=== PATIENT | female | born 1980 | race Caucasian/White ===

== ENCOUNTER 2022-11-03 09:26 | Emergency (ER) | payer OTHER, SELFPAY ==
[2022-11-03] VITALS (7 sets, daily range): BP systolic 103–140; BP diastolic 64–92; PULSE 62–98; RESP 17–18; TEMP 36.8; O2SAT 97–100; BMI 28.8
[2022-11-03 09:44] LABS: Microscopic, Urine URINE MICROSCOPIC (MICROSCOPIC)
[2022-11-03 09:47] LABS: Appearance,Urine CLEAR (Clear); Bilirubin,Urine Negative (Negative); Blood, Urine 2+ (Negative); Color,Urine YELLOW (Yellow); Glucose,Urine (UA) Negative (Negative); Ketones,Urine Negative (Negative); Leukocyte Esterase,Urine Negative (Negative); Nitrate,Urine Negative (Negative); PH,Urine 5.5 (5.0-8.5); Protein,Urine TRACE (Negative); Specific Gravity, Urine >= 1.030 (1.005-1.030); Urobilinogen,Urine 0.2 EU/dl (0.2)
--- NOTE | 2022-11-03 09:47 | PC.NURSE ---
Iv established and blood sent to the lab
--- NOTE | 2022-11-03 09:48 | HMH.EDGENADL ---
Discharge Plan Disposition Patient Disposition: Home, Self-Care Condition: Good Prescriptions Prescriptions: New clindamycin HCl 300 mg capsule 300 mg PO QID Qty: 40 0RF hydrocodone-acetaminophen 5-325 mg tablet 1 tab PO Q6H PRN (Reason: pain) Qty: 10 0RF No Action trazodone 50 mg Tablet 50 mg PO HS PRN (Reason: Sleep) pantoprazole [Protonix] 20 mg Tablet,Delayed Release (Dr/Ec) 20 mg PO DAILY gabapentin 300 mg Capsule 300 mg PO BID Activity Restrictions/Add. Instructions Additional Instructions/Restrictions: Clindamycin as prescribed. P[place]oy as needed for pain. 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 Additional instructions for DENTAL PROBLEMS: See a dentist as soon as possible for further evaluation. Return immediately if you have an uncontrollable fever greater than 102 degrees, difficulty breathing or shortness of breath, persistent vomiting, or inability to swallow. Additional instructions for ABDOMINAL PAIN: See your physician as soon as possible for further evaluation. Return immediately if worsening abdominal pain, vomiting, shortness of breath, fever, vomiting of blood or abdominal distention. Additional instructions for CONTROLLED SUBSTANCES: You have been prescribed a medication that is a controlled substance. Controlled substances include pain medications known as opiates and sedative nerve medications known as benzodiazepines. Tramadol, fioricet, and gabapentin are also controlled substances. Some common opiates include: Codeine (such as Tylenol #3) Hydrocodone (Vicodin, Lortab, Lorcet, Pomeroy) Oxycodone (Percocet, Percodan, Oxycodone, Oxy IR) Some common benzodiazepines include: Diazepam (Valium) Lorazepam (Ativan) Alprazolam (Xanax) Clonazepam (Klonopin) Oxazepam (Serax) All of these controlled substances are highly addictive and frequently abused. Misuse can and frequently does lead to addiction as well as overdose and . Medication should be stored in a locked cabinet or other secure storage unit. Do not store the medication in a motor vehicle. Short term supplies, 3 days or less, are prescribed because of the highly addictive nature of the medication. Any of the controlled substance medication NOT taken should be disposed of properly and NOT SAVED. The recommended method of disposing of unused medications is: Place the medicines in a sealable plastic bag. If the medicine is a solid, crush it or add water to dissolve it. Add something undesirable (cat litter, coffee grounds, etc.) Dispose of sealed bag in household trash Do not flush or pour unused medicines down a sink or drain. Controlled substances should not be shared, given away or sold. Because of the addictive nature and frequent abuse, these medications are sometimes stolen. These medications should be kept in a safe place where they cannot be stolen. Do not keep them in your car or purse. Lost or stolen prescriptions for controlled substances WILL NOT BE REFILLED in this emergency department, regardless of whether a police report was filed. Clinical Impressions Clinical Impression: Abdominal pain, Infected dental caries Instructions Patient Instructions: DI for Tooth Abscess, DI for Acute Abdominal Pain Discharge ED Provider: Yeison Crandall General Adult HPI General Chief complaint: Abdominal Pain Stated complaint: jaw pain, pelvic pain Time Seen by Provider: 11/03/22 09:48 Mode of Arrival: Ambulatory Source of Information: Patient Limitations: No Limitations Description of Symptoms (Recalled from ER Triage Doc. by RN): PT REPORTS LOWER ABDOMINAL PAIN WITH HX OF ENDOMETRIOSIS. C/O LOW BACK AND HIP PAIN, PAIN TO TOP OF LEGS. RIGHT SIDED FACIAL SWELLING THAT STARTED YESTERDAY. NO DENTAL PAIN, FACE TENDER TO TOUCH History of Present Illness HPI narrative: Complains of abdominal pain and facial pain and swelling. States she has a history of endomet
--- NOTE | 2022-11-03 09:54 | PC.NURSE ---
DR. MOSER AT BEDSIDE
--- NOTE | 2022-11-03 09:56 | CT_ITS ---
FINAL REPORT CLINICAL HISTORY: R facial swelling and pain FINDINGS: After the administration of IV contrast, axial images through the facial bones and sinuses was performed by computed tomography. Sagittal and coronal reformatted images were obtained and reviewed. This study was performed with techniques to keep radiation doses as low as reasonably achievable (ALARA). Individualized dose reduction techniques using automated exposure control or adjustment of mA and/or kV according to the patient's size were employed. There is a tiny polyp or mucous retention cyst in the right maxillary sinus. There is no evidence of acute sinusitis. There is stranding and enhancement within the right pre maxillary soft tissues compatible with cellulitis. This is favored to be related to odontogenic disease with lucencies involving multiple teeth in this region. No abscess is identified. IMPRESSION: Right facial cellulitis , likely odontogenic in origin without evidence of abscess. Reviewed, Interpreted and Dictated by Skinny Cohen MD Transcribed by Della Nur Authenticated and [facility]
--- NOTE | 2022-11-03 09:58 | CT_ITS ---
FINAL REPORT TECHNIQUE: After the administration of IV contrast, axial images through the abdomen and pelvis was performed by computed tomography. This study was performed with techniques to keep radiation doses as low as reasonably achievable (ALARA). Individualized dose reduction techniques using automated exposure control or adjustment of mA and/or kV according to the patient's size were employed. CLINICAL HISTORY: lower abdo pain FINDINGS: Abdomen: Lung bases are clear. Liver has an unremarkable CT appearance. The spleen, pancreas and adrenal glands are unremarkable. Kidneys show no mass or obstruction. The patient is status post cholecystectomy. No bowel obstruction or fluid collection is seen. Pelvis: The appendix is not identified but there are no secondary findings to suggest appendicitis. The uterus is mildly enlarged and lobulated, probably due to fibroids. There is a tiny umbilical hernia containing fat. Pelvic bowel loops are unremarkable. No fluid collection or adenopathy is seen. IMPRESSION: No findings to account for patient's symptoms. Reviewed, Interpreted and Dictated by Skinny Cohen MD Transcribed by Della Nur Authenticated and [facility]
[2022-11-03 10:02] LABS: Basophils # 0.1 K/mm3 (0-0.2); Basophils % 0.6 % (0.1-2.0); Eosinophils # 0.3 K/mm3 (0.0-0.4); Eosinophils % 2.2 % (0.1-12.0); Hematocrit 40.5 % (37.0-47.0); Hemoglobin 13.6 g/dL (12.2-16.2); Lymphocytes # 2.6 K/mm3 (0.7-4.5); Mean Corpuscular HGB Conc 33.5 g/dL (31.8-35.4); Mean Corpuscular Hemoglobin 30.4 pg (27.0-31.2); Mean Corpuscular Volume 90.7 fl (81-99); Mean Platelet Volume 7.6 fl (7.4-10.4); Monocytes # 0.7 K/mm3 (0.1-1.0); Monocytes % 4.9 % (1.7-9.3); Neutrophils # 10.5 K/mm3 (1.8-7.8); Neutrophils % 74.2 % (37.0-80.0); Platelet Count 479 K/mm3 (142-424); Red Blood Count 4.47 M/mm3 (4.20-5.40); Red Cell Distribution Width 13.4 % (11.5-17.5); White Blood Count 14.2 K/mm3 (4.8-10.8)
[2022-11-03 10:12] LABS: Chloride 109 mmol/L (98-107); Potassium 3.8 mmoL/L (3.5-5.1); Sodium 142 mmol/L (136-145)
[2022-11-03 10:14] LABS: Blood Urea Nitrogen 14 mg/dl (7-17); Creatinine Clearance Estimated 140 mL/min (50-200); Estimated Glomerular Filt Rate 91 ml/min (>60); GFR (African American) 110 ML/MIN (>60)
[2022-11-03 10:15] LABS: Alanine Aminotransferase 20 U/L (12-78); Albumin Level 4.5 g/dl (3.5-5.0); Albumin/Globulin Ratio 1.2 (1.1-1.8); Alkaline Phosphatase 62 U/L (38-126); Anion Gap 14.8 mEq/L (5-15); Aspartate Amino Transferase 37 U/L (14-36); Bilirubin,Total 0.6 mg/dl (0.2-1.3); Calcium 8.8 mg/dl (8.4-10.2); Carbon Dioxide 22 mmol/L (22.0-30.0); Globulin 3.7 g/dL (1.3-3.2); Glucose 110 mg/dl (74-100); HCG Qualitative, Serum Negative (Negative); Lipase 117 U/L (23-300); Total Protein,Serum 8.2 g/dl (6.3-8.2)
[2022-11-03 10:18] LABS: Bacteria,Urine Trace /lpf; WBC,Urine Occasional #/hpf (0-3)
[2022-11-03 10:20] LABS: C-Reactive Protein 9.6 mg/L (0-4)
--- NOTE | 2022-11-03 10:21 | PC.NURSE ---
PT TO CT
--- NOTE | 2022-11-03 10:21 | PC.NURSE ---
pt going to CT
--- NOTE | 2022-11-03 10:21 | PC.NURSE ---
Pt going to CT in wheelchair
[2022-11-03 10:25] LABS: Erythrocyte Sedimentation Rate 30 mm/hr (0-20)
--- NOTE | 2022-11-03 10:34 | PC.NURSE ---
Patient back from CT
== END 2022-11-03 12:40 | disposition home or self-care (01) ==
PROVIDERS: Emergency Provider Emergency Medicine
DX: R10.2 Pelvic and perineal pain (principal); K04.7 Periapical abscess without sinus
CPT/HCPCS: 70487; 74177; 80053; 81001; 83690; 84703; 85025; 85651; 86140; 96374; 96375; 96376; 99285; J2405; Q9967

== ENCOUNTER 2022-11-04 13:39 | Emergency (ER) | payer OTHER, SELFPAY ==
[2022-11-04 13:40] VITALS: BP 137/99; PULSE 82; RESP 18; TEMP 36.8; O2SAT 99; BMI 29.3
[2022-11-04 13:43] VITALS: BP 137/99; PULSE 84; RESP 17; O2SAT 100
--- NOTE | 2022-11-04 13:49 | PC.NURSE ---
er at bedside
--- NOTE | 2022-11-04 13:55 | HMH.EDGENADL ---
Discharge Plan Disposition Patient Disposition: Home, Self-Care Condition: Fair Prescriptions Prescriptions: No Action trazodone 50 mg Tablet 50 mg PO HS PRN (Reason: Sleep) pantoprazole [Protonix] 20 mg Tablet,Delayed Release (Dr/Ec) 20 mg PO DAILY gabapentin 300 mg Capsule 300 mg PO BID clindamycin HCl 300 mg capsule 300 mg PO QID Qty: 40 0RF hydrocodone-acetaminophen 5-325 mg tablet 1 tab PO Q6H PRN (Reason: pain) Qty: 10 0RF Referrals Follow up/Referrals: Provider,Referral, MD [Primary Care Provider] - See instructions Clinical Impressions Clinical Impression: Cellulitis of face Instructions Patient Instructions: DI for Cellulitis -- Adult Discharge ED Provider: Rajiv Richards General Adult HPI General Stated complaint: Possible infection RT side face Time Seen by Provider: 11/04/22 13:45 History of Present Illness HPI narrative: Patient is a 42-year-old female with a recent diagnosis of facial cellulitis who presents with concern for worsening right-sided face pain. She says that she has been taking her antibiotics and pain medication but she is still having a lot of swelling to her face. She says that it is little bit worse than yesterday. She denies any visual disturbance. Denies any pain with extraocular movement. She says that she has not been able to eat very well due to the pain. She describes it as a throbbing sensation. Related Data Home Medications Medication Instructions Recorded Confirmed gabapentin 300 mg capsule 300 mg PO BID Pain 11/03/22 11/03/22 pantoprazole 20 mg tablet,delayed 20 mg PO DAILY Reflux/Acid reflux 11/03/22 11/03/22 release (Protonix) trazodone 50 mg tablet 50 mg PO HS PRN Sleep 11/03/22 11/03/22 Previous Rx's Medication Instructions Recorded clindamycin HCl 300 mg capsule 300 mg PO QID #40 caps 11/03/22 hydrocodone 5 mg-acetaminophen 325 1 tab PO Q6H PRN pain #10 tabs 11/03/22 mg tablet Allergies Allergy/AdvReac Type Severity Reaction Status Date / Time duloxetine Allergy Verified 11/03/22 09:37 ketorolac [From Toradol] Allergy Hives Verified 11/03/22 09:37 [facility] Disclaimer: The information contained in this section may have been updated after the patient was seen, as this information can be updated by other users. Social History Smoking Status: Never smoker alcohol intake: current current occupational status: other Travel in the last 8 weeks: None ROS Obtained: Yes All systems reviewed & no additional complaints except as documented A 14 point review of system was obtained and otherwise negative except per HPI Physical Exam General General appearance: alert and in no apparent distress Head Head exam: atraumatic and normocephalic Eye Eye exam: Present normal appearance and EOMI ENT ENT exam: Present mucous membranes moist Expanded ENT Exam Comment: Poor dentition with widespread dental decay. Right maxillary molar is decayed to the gumline. No gingival swelling. No dental tenderness. No sublingual swelling or elevation of the tongue. No purulence, no visible abscess. Neck Neck exam: Present normal inspection and trachea midline Chest Chest inspection: Present normal inspection and symmetric chest wall rise Respiratory Respiratory exam: Present normal lung sounds bilaterally; Absent respiratory distress Cardiovascular Cardiovascular exam: Present regular rate, normal rhythm and normal heart sounds Abdominal Exam Abdominal exam: Present soft, tenderness and normal bowel sounds; Absent distention, guarding, rebound or rigidity Abdominal tenderness: Present RLQ, LLQ and suprapubic Extremities Exam Extremities exam: Present normal inspection Back Exam Back exam: Absent CVA tenderness (R) or CVA tenderness (L) Neurological Exam Neurological exam: Present alert and oriented X3 Psychiatric Psychiatric exam: Present normal affect and normal mood Skin Skin exam: Present warm and
[2022-11-04 14:18] VITALS: BP 132/77; PULSE 88; RESP 18; TEMP 36.8; O2SAT 99
--- NOTE | 2022-11-04 20:11 | PC.NURSE ---
Medical records sent to [facility] [phone].
== END 2022-11-04 14:19 | disposition home or self-care (01) ==
PROVIDERS: Emergency Provider Student in an Organized Health Care Education/Training Program
DX: L03.211 Cellulitis of face (principal)
CPT/HCPCS: 99283; 99284

== ENCOUNTER 2023-07-23 13:34 | Emergency (ER) | payer OTHER, SELFPAY ==
--- NOTE | 2023-07-23 14:11 | PC.NURSE ---
pt in lobby due to rooms are full, pt obtained a urine sent to lab, pt went back to lobby till a room is available
[2023-07-23 14:28] LABS: Microscopic, Urine URINE MICROSCOPIC (MICROSCOPIC)
[2023-07-23 14:30] VITALS: BP 139/82; PULSE 95; RESP 18; TEMP 37.2; O2SAT 98; BMI 26.7
[2023-07-23 14:39] LABS: Appearance,Urine CLEAR (Clear); Bilirubin,Urine Negative (Negative); Blood, Urine TRACE-I (Negative); Color,Urine YELLOW (Yellow); Glucose,Urine (UA) Negative (Negative); Ketones,Urine Negative (Negative); Leukocyte Esterase,Urine Negative (Negative); Nitrate,Urine Negative (Negative); Protein,Urine Negative (Negative); Specific Gravity, Urine >= 1.030 (1.005-1.030); Urobilinogen,Urine 0.2 EU/dl (0.2)
[2023-07-23 15:00] VITALS: BP 108/82; PULSE 81; RESP 16; O2SAT 98
[2023-07-23 15:00] LABS: Bacteria,Urine Trace /lpf
--- NOTE | 2023-07-23 15:18 | PC.NURSE ---
RN AT BEDSIDE FOR VAGINAL EXAM WITH DR MOSLEY
--- NOTE | 2023-07-23 15:27 | PC.NURSE ---
dr cornell speaking with dr alvares
--- NOTE | 2023-07-23 15:28 | HMH.EDGENADL ---
Discharge Plan Disposition Patient Disposition: Home, Self-Care Prescriptions Prescriptions: New sulfamethoxazole-trimethoprim [Bactrim DS] 800-160 mg tablet 1 tab PO DAILY 5 Days Qty: 5 0RF No Action trazodone 50 mg Tablet 50 mg PO HS PRN (Reason: Sleep) pantoprazole [Protonix] 20 mg Tablet,Delayed Release (Dr/Ec) 20 mg PO DAILY gabapentin 300 mg Capsule 300 mg PO BID clindamycin HCl 300 mg capsule 300 mg PO QID Qty: 40 0RF hydrocodone-acetaminophen 5-325 mg tablet 1 tab PO Q6H PRN (Reason: pain) Qty: 10 0RF Referrals Follow up/Referrals: Provider,Referral, MD [Primary Care Provider] - See instructions Activity Restrictions/Add. Instructions Additional Instructions/Restrictions: At this time was felt you are safe to be discharged home. If new or worsening symptoms please do not hesitate to return the emergency department. Please follow-up with gynecology tomorrow at Dr. Davis's office at 8:30 AM. Please take your antibiotics as prescribed. Clinical Impressions Clinical Impression: Abscess of Bartholin's gland Discharge ED Provider: Boris De La Rosa General Adult HPI General Chief complaint: Skin/Abscess/Foreign Body Stated complaint: abscess between legs, pelvic pain Time Seen by Provider: 07/23/23 15:07 Mode of Arrival: Ambulatory Source of Information: Patient Limitations: No Limitations Description of Symptoms (Recalled from ER Triage Doc. by RN): PT WITH RIGHT LABIAL PAIN AND SWELLING THAT STARTED ON SUNDAY. PT HAS TAKEN AN OLD RX FOR BACTRIM X 3 DOSES History of Present Illness HPI narrative: Patient is a 43-year-old female past medical history of previous Bartholin glands abscess who presents for right labial swelling. Onset was acute, since Sunday. Associated moderate pain over her right vagina. No other acute complaints at this time. Related Data Home Medications Medication Instructions Recorded Confirmed gabapentin 300 mg capsule 300 mg PO BID Pain 11/03/22 11/03/22 pantoprazole 20 mg tablet,delayed 20 mg PO DAILY Reflux/Acid reflux 11/03/22 11/03/22 release (Protonix) trazodone 50 mg tablet 50 mg PO HS PRN Sleep 11/03/22 11/03/22 Previous Rx's Medication Instructions Recorded clindamycin HCl 300 mg capsule 300 mg PO QID #40 caps 11/03/22 hydrocodone 5 mg-acetaminophen 325 1 tab PO Q6H PRN pain #10 tabs 11/03/22 mg tablet sulfamethoxazole 800 1 tab PO DAILY 5 days #5 tabs 07/23/23 mg-trimethoprim 160 mg tablet (Bactrim DS) Allergies Allergy/AdvReac Type Severity Reaction Status Date / Time duloxetine Allergy Verified 11/03/22 09:37 ketorolac [From Toradol] Allergy Hives Verified 11/03/22 09:37 [facility] Disclaimer: The information contained in this section may have been updated after the patient was seen, as this information can be updated by other users. Social History (Updated 11/04/22 @ 14:05 by Rajiv Richards MD) Smoking Status: Current every day smoker alcohol intake: current current occupational status: other Travel in the last 8 weeks: None ROS Obtained: Yes Systems reviewed as appropriate & no additional complaints except as documented Physical Exam General General appearance: alert and in no apparent distress Head Head exam: atraumatic and normocephalic Eye Eye exam: Present PERRL and EOMI ENT ENT exam: Present mucous membranes moist Neck Neck exam: Present normal inspection Chest Chest inspection: Present normal inspection and symmetric chest wall rise Respiratory Respiratory exam: Absent respiratory distress Cardiovascular Cardiovascular exam: Present regular rate and normal rhythm Abdominal Exam Abdominal exam: Present soft; Absent tenderness External exam: Present other (Die Fitter present, tender swelling of the labia majora on the right. No perianal tenderness, no inguinal canal tenderness. No crepitus.) Extremities Exam Extremities exam: Present normal inspection Neurologica
--- NOTE | 2023-07-23 15:31 | PC.NURSE ---
Made appt with Dr. Davis's office for [address] Bhatti aware and he updated the pt of this appt.
[2023-07-23 15:48] VITALS: BP 113/79; PULSE 72; RESP 19; TEMP 36.9; O2SAT 99
== END 2023-07-23 15:51 | disposition home or self-care (01) ==
PROVIDERS: Emergency Provider Emergency Medicine
DX: N75.1 Abscess of Bartholin's gland (principal); F17.210 Nicotine dependence, cigarettes, uncomplicated
CPT/HCPCS: 81001; 99282

== ENCOUNTER 2023-07-24 10:27 | Day surgery (SDC) | payer OTHER, SELFPAY ==
[2023-07-24] VITALS (9 sets, daily range): BP systolic 104–139; BP diastolic 64–93; PULSE 71–86; RESP 16–20; TEMP 36.4–36.7; O2SAT 91–100; BMI 25.9
[2023-07-24 11:15] LABS: Urine Pregnancy, HCG Qual. Negative (Negative)
[2023-07-24 11:25] LABS: Anion Gap 14.1 mEq/L (5-15); Blood Urea Nitrogen 13 mg/dl (7-17); Calcium 9.3 mg/dl (8.4-10.2); Carbon Dioxide 21 mmol/L (22.0-30.0); Chloride 105 mmol/L (98-107); Creatinine Clearance Estimated 97 mL/min (50-200); Estimated Glomerular Filt Rate 68 ml/min (>60); GFR (African American) 82 ML/MIN (>60); Glucose 114 mg/dl (74-100); Potassium 4.1 mmoL/L (3.5-5.1); Sodium 136 mmol/L (136-145)
[2023-07-24 11:31] LABS: Basophils % 0.3 % (0.1-2.0); Eosinophils # 0.1 K/mm3 (0.0-0.4); Eosinophils % 0.6 % (0.1-12.0); Hematocrit 43.4 % (37.0-47.0); Hemoglobin 14.3 g/dL (12.2-16.2); Lymphocytes # 1.9 K/mm3 (0.7-4.5); Lymphocytes % 16.5 % (10-50); Mean Corpuscular HGB Conc 32.9 g/dL (31.8-35.4); Mean Corpuscular Hemoglobin 28.9 pg (27.0-31.2); Mean Corpuscular Volume 87.8 fl (81-99); Mean Platelet Volume 7.3 fl (7.4-10.4); Monocytes # 0.6 K/mm3 (0.1-1.0); Monocytes % 4.9 % (1.7-9.3); Neutrophils # 9.1 K/mm3 (1.8-7.8); Neutrophils % 77.7 % (37.0-80.0); Platelet Count 377 K/mm3 (142-424); Red Blood Count 4.94 M/mm3 (4.20-5.40); Red Cell Distribution Width 13.5 % (11.5-17.5); White Blood Count 11.8 K/mm3 (4.8-10.8)
--- NOTE | 2023-07-24 11:36 | P.PNANES_ITS ---
[facility] Disclaimer: The information contained in this section may have been updated after the patient was seen, as this information can be updated by other users. Medical History Kidney stone Surgical History (Updated 07/24/23 @ 11:02 by Tigist Correa RN) History of appendectomy Hx of cholecystectomy Hx of colonoscopy Hx of tubal ligation Family History (Updated 07/24/23 @ 11:03 by Tigist Correa RN) Mother Cancer Other Family history of diabetes mellitus type II Social History (Updated 07/24/23 @ 11:03 by Tigist Correa RN) Smoking Status: Current some day smoker tobacco type: e-cigarettes alcohol intake: current substance use type: denies use current occupational status: employed Travel in the last 8 weeks: None [facility] Anesthesia Checklist Patient Identification Patient Identification: Arm Band Structural Data Admitted From: Home Planned Operative Procedure/s: I and D vaginal/labial abscess Consent for Planned Operative Procedure(s) Verified: Yes Verified Documents: Surgical Consent and History and Physical NPO Status Verified Time NPO: 00:00 Additional verifications Patient : No Anesthesia Reactions: No Hx Blood Transfusions: No Blood Transfusion Reaction: No Cephalosporin Allergy: No Previous Colonoscopy: Yes Airway Assessment Mallampati Score:: Class II C-Spine Mobility Assessed: Yes TMJ Mobility Assessed: Yes Dentition: Good Dentition Neurological Assessment Level of Consciousness: Awake, Alert, Appropriate and Follows Commands Hx Seizures: No Numbness or tingling in extremities: No Anesthesia Plan Anesthesia Risk discussed: Yes ASA Class: I Anesthesia Type: General
--- NOTE | 2023-07-24 12:04 | EXP.OP.NOTE ---
Date of procedure: 07/24/23 Pre-op Diagnosis:: Right labial abscess Post-op Diagnosis:: Right labial abscess Procedure performed:: Incision and drainage of labial abscess. Surgeon:: Yoni Davis MD OPHTHALMOLOGIST RETINA SPECIALIST:: Josiah Mccray Anesthesia: LMA Estimated blood loss (mL): 10 Clinical Note:: She is a 43-year-old lady who complains of a right labial abscess that started about 4 days ago. She was seen in the ER and refused I&D. She was seen in my office today and asked to have the abscess drained in the operating room. Operative findings:: She had a completely swollen and indurated right labia. At the lower end of the right labia there was a fluctuant area and this was incised and drained. The risk and benefits of surgery were discussed with patient prior to surgery. Operative note:: She was taken the operating room where LMA anesthesia was found to be adequate. She was prepped and draped in normal sterile fashion in the lithotomy position. Using a #11 blade I opened up into the abscess cavity at the lower end of her right labia majora. approximately 5 cc of foul-smelling purulent material drained from the abscess. Cultures were taken of this purulent material. The abscess cavity was then probed and cleaned with Hibiclens. I then inserted a small amount of iodoform gauze into the abscess cavity. She tolerated procedure well and was taken to the recovery room in excellent condition. All sponge and instrument counts were correct. Condition: stable Disposition: PACU Specimens:: Cultures for purulent abscess. Complications:: None
--- NOTE | 2023-07-24 12:09 | P.PNANES_ITS ---
[facility] Anesthesia Record Part I Anesthesia Record I Intake, IV Amount: 200 Hydration: Adequate Estimated blood loss (mL): 10 Urine output (mL): 0 Blood Pressure: 104/66 SaO2: 92 Pulse Rate: 74 Airway Patency: Patent Respiratory Rate: 16 Temperature: 97.5 F Patient is:: Awake Stable to PACU at:: 12:07
--- NOTE | 2023-07-25 07:35 | EXP.ANES.II ---
[facility] Anesthesia Record Part II Anesthesia Record Part II Discharge Time: 12:37 Destination: Surgical Day Care (OP Surgery) PACU nurse assessment reviewed?: Yes Patient Condition:: Good Anesthesia Complications:: None Swallowing reflex intact?: Yes Airway Patency: Patent Cyanosis?: No Blood Pressure: 118/64 SaO2: 97 Respiratory Rate: 20 Pulse Rate: 71 Temperature: 97.5 F Mental Status: Alert & Oriented Pain level:: 0 Nausea and/or vomitting:: None Intake, IV Amount: 0 Hydration: Adequate
[2023-07-25 07:36] VITALS: BP 118/64; PULSE 71; RESP 20; TEMP 36.4; O2SAT 97
== END 2023-07-24 13:10 | disposition home or self-care (01) ==
PROVIDERS: Visit Provider Nurse Practitioner Obstetrics & Gynecology
PROC: (CPT 56405; principal; 2023-07-24 11:30)
DX: N76.4 Abscess of vulva (principal)
CPT/HCPCS: 56405; 80048; 81025; 85025; 87070; 87075; 87205; 96374; J0696; J2405

== ENCOUNTER → 2023-08-01 09:32 | Outpatient (CLI) | payer OTHER, SELFPAY ==
--- OUTSIDE RECORDS SUMMARY | 2023-08-01 09:35 | XMS_ITS | Continuity of Care Document ---
Author Name Unknown Address [address] [place], [place] [id number] Organization [facility] Phone Care Team Providers Care Powder Shoveler Name Role Phone NO, FAMILY P Primary Care REFFEZAY HERNANDEZ Y Admitting REFZAY FERNANDEZ Y Primary Attending REFZAY FERNANDEZ Y Unavailable ALLERGIES AND ADVERSE REACTIONS ALLERGIES AND ADVERSE REACTIONS Code System Allergy Substance Adverse Reaction Date Reaction (Severity) Comment Status Reported By Updated By No Known Allergies [email or web address] on October 08, 2022 7:39:07 PM [facility] FAMILY HISTORY RELATION: Father Status: LIVING SNOMED-CT Diagnosis Age At Onset Information not available RELATION: Mother Status: LIVING SNOMED-CT Diagnosis Age At Onset [id number] Alcohol dependence RELATION: Son Status: LIVING SNOMED-CT Diagnosis Age At Onset [id number] Bipolar I disorder TREATMENT PLAN DISCHARGE MEDICATIONS Status RXNORM Medication Dose Route Frequency Dates Comments U pdated By Patient discharge medication information is not available. PATIENT OPEN ORDERS Code System Description Frequency Occurrences Priority Start Date Ordering Physician Updated By
--- OUTSIDE RECORDS SUMMARY | 2023-08-01 09:35 | XMS_ITS | Continuity of Care Document ---
Author Name Unknown Address [address] [place], [place] [id number] Organization [facility] Phone Care Team Providers Care Floor Service Worker Spring Name Role Phone NO, FAMILY P Primary Care REFFEZAY HERNANDEZ Y Admitting REFZAY FERNANDEZ Y Primary Attending REFFEZAY HERNANDEZ Y Unavailable ALLERGIES AND ADVERSE REACTIONS ALLERGIES AND ADVERSE REACTIONS Code System Allergy Substance Adverse Reaction Date Reaction (Severity) Comment Status Reported By Updated By No Known Allergies [email or web address] on October 08, 2022 7:39:07 PM [facility] FAMILY HISTORY RELATION: Father Status: LIVING SNOMED-CT Diagnosis Age At Onset Information not available RELATION: Mother Status: LIVING SNOMED-CT Diagnosis Age At Onset [id number] Alcohol dependence RELATION: Son Status: LIVING SNOMED-CT Diagnosis Age At Onset [id number] Bipolar I disorder RESULTS Patient: JUN RIVAS Date of : [birth year] LABORATORY RESULTS ORDER 300: CBC AUTO W DIFF ( LOINC: [id number]) ORDER DATE: June 24, 2023 4:17:00 PM [facility] Specimen Source: Whole Blood
--- OUTSIDE RECORDS SUMMARY | 2023-08-01 09:35 | XMS_ITS | Continuity of Care Document ---
Author Name Unknown Address [address] [place], [place] [id number] Organization [facility] Phone Care Team Providers Care Furniture Reproducer Name Role Phone NO, FAMILY P Primary Care REFFEZAY HERNANDEZ Y Admitting REFZAY FERNANDEZ Y Primary Attending REFFEZAY HERNANDEZ Y Unavailable ALLERGIES AND ADVERSE REACTIONS ALLERGIES AND ADVERSE REACTIONS Code System Allergy Substance Adverse Reaction Date Reaction (Severity) Comment Status Reported By Updated By No Known Allergies [email or web address] on October 08, 2022 7:39:07 PM [facility] FAMILY HISTORY RELATION: Father Status: LIVING SNOMED-CT Diagnosis Age At Onset Information not available RELATION: Mother Status: LIVING SNOMED-CT Diagnosis Age At Onset [id number] Alcohol dependence RELATION: Son Status: LIVING SNOMED-CT Diagnosis Age At Onset [id number] Bipolar I disorder RESULTS Patient: JUN RIVAS Date of : [birth year] LABORATORY RESULTS ORDER 200: VIRAL HEPATITIS H BV HCV PANEL (LOINC: [id number]) ORDER DATE: June 24, 2023 4:17:00 PM [facility] Specimen Source: Serum
[2023-08-01 10:11] LABS: Basophils % 0.5 % (0.1-2.0); Eosinophils # 0.3 K/mm3 (0.0-0.4); Hematocrit 40.6 % (37.0-47.0); Hemoglobin 13.3 g/dL (12.2-16.2); Lymphocytes # 2.8 K/mm3 (0.7-4.5); Lymphocytes % 28.4 % (10-50); Mean Corpuscular HGB Conc 32.7 g/dL (31.8-35.4); Mean Corpuscular Hemoglobin 28.9 pg (27.0-31.2); Mean Corpuscular Volume 88.2 fl (81-99); Mean Platelet Volume 8.1 fl (7.4-10.4); Monocytes # 0.3 K/mm3 (0.1-1.0); Monocytes % 3.5 % (1.7-9.3); Neutrophils # 6.3 K/mm3 (1.8-7.8); Neutrophils % 64.6 % (37.0-80.0); Platelet Count 447 K/mm3 (142-424); Red Cell Distribution Width 13.6 % (11.5-17.5); White Blood Count 9.8 K/mm3 (4.8-10.8)
[2023-08-01 10:46] LABS: Alanine Aminotransferase 35 U/L (12-78); Albumin Level 4.4 g/dl (3.5-5.0); Albumin/Globulin Ratio 1.4 (1.1-1.8); Alkaline Phosphatase 83 U/L (38-126); Anion Gap 18.2 mEq/L (5-15); Aspartate Amino Transferase 29 U/L (14-36); Blood Urea Nitrogen 11 mg/dl (7-17); Calcium 9.4 mg/dl (8.4-10.2); Carbon Dioxide 20 mmol/L (22.0-30.0); Chloride 103 mmol/L (98-107); Estimated Glomerular Filt Rate 78 ml/min (>60); GFR (African American) 94 ML/MIN (>60); Globulin 3.2 g/dL (1.3-3.2); Glucose 166 mg/dl (74-100); Potassium 4.2 mmoL/L (3.5-5.1); Sodium 137 mmol/L (136-145); Total Protein,Serum 7.6 g/dl (6.3-8.2)
[2023-08-01 10:49] LABS: Bilirubin,Total < 0.1 mg/dl (0.2-1.3)
== END ==
PROVIDERS: Visit Provider Nurse Practitioner Obstetrics & Gynecology
DX: Z09 Encounter for follow-up examination after completed treatment for conditions other than malignant neoplasm (principal)
CPT/HCPCS: 36415; 80053; 85025

== ENCOUNTER 2023-08-20 10:38 | Emergency (ER) | payer OTHER, SELFPAY ==
[2023-08-20 10:40] VITALS: BP 142/96; PULSE 94; RESP 18; TEMP 36.6; O2SAT 99; BMI 26.6
[2023-08-20 11:00] VITALS: BP 153/95; PULSE 85; O2SAT 97
--- NOTE | 2023-08-20 11:07 | HMH.EDGENADL ---
Discharge Plan Disposition Patient Disposition: Home, Self-Care Prescriptions Prescriptions: New sulfamethoxazole-trimethoprim [Bactrim DS] 800-160 mg tablet 1 tab PO BID 5 Days Qty: 10 0RF mupirocin 2 % ointment 1 applic topical BID 5 Days Qty: 22 0RF esomeprazole magnesium 20 mg capsule,delayed release(DR/EC) 20 mg PO DAILY 56 Days Qty: 56 1RF chlorhexidine gluconate [Hibiclens] 4 % liquid 1 applic topical Q5M Qty: 473 0RF Rx Instructions: Full body scrub once daily for 5 days, allow to sit on body for 2 to 3 minutes before rinsing out. Avoid eyes No Action naloxone [Narcan] 4 mg/actuation spray,non-aerosol 4 mg intranasal NEEDED PRN (Reason: family member) Patient Comments: [place] 1 spray into one nostril single dose as directed q 2-3 min until responsive or EMS Arrives. Rx Instructions: for son who is addicted melatonin 10 mg capsule 20 mg PO HS PRN (Reason: Sleep) Referrals Follow up/Referrals: Provider,Referral, [Primary Care Provider] - See instructions Wesley Vidales DO [Staff Physician] - See instructions Activity Restrictions/Add. Instructions Additional Instructions/Restrictions: Bactrim twice daily for 7 days, avoid alcohol while taking this. Apply ointment to both nostrils twice daily for 5 days. Use chlorhexidine soap everywhere except around eyes daily for 5-7 days. Apply to sponge, apply soap and suds to entire body (including crevices and soles of feet), soil engineer the shower for 2 to 3 minutes before rinsing. Call your family doctor to establish care for this visit to the emergency department and schedule follow-up within 48 hours to ensure improvement. If you have any worsening of your condition or any other concerning signs or symptoms, return to the emergency department or your primary care doctor for further evaluation. Clinical Impressions Clinical Impression: Cellulitis of face, Abdominal pain, Gastritis Instructions Patient Instructions: DI for Acute Abdominal Pain Discharge ED Provider: Boris De La Rosa General Adult HPI General Chief complaint: Abdominal Pain Stated complaint: UPPER CENTER ABDOMINAL PAIN Time Seen by Provider: 08/20/23 10:42 Mode of Arrival: Ambulatory Source of Information: Patient Limitations: No Limitations Description of Symptoms (Recalled from ER Triage Doc. by RN): Patient complaint of epigastric pain that started on Sunday. States the pain is relieved if she holds her breath. History of Present Illness HPI narrative: 43-year-old female with history of numerous abscesses, cholecystectomy, appendectomy, tubal ligation presenting with abdominal pain. Patient states she started having swelling in the right side of her face. Because she assumed it was another infection, started taking leftover Bactrim she had from previous surgery. Patient started having abdominal pain with nausea starting 3 days prior to arrival shortly after taking those medications. She also started having liquidy oily bowel movements that look like vegetable oil. Patient has also been taking quite a bit of [id number] ibuprofen, naproxen, and Tylenol to help with pain in her face. Denies fevers or chills, inability to tolerate p.o. intake, dysuria, hematuria, frequency urgency, or any other concerns. Related Data Home Medications Medication Instructions Recorded Confirmed melatonin 10 mg capsule 20 mg PO HS PRN Sleep 07/24/23 08/01/23 naloxone 4 mg/actuation nasal 4 mg intranasal NEEDED PRN 07/24/23 08/01/23 spray (Narcan) family member Previous Rx's Medication Instructions Recorded chlorhexidine gluconate 4 % 1 applic topical Q5M 2 doses #473 08/20/23 topical liquid (Hibiclens) mL esomeprazole magnesium 20 mg 20 mg PO DAILY 8 weeks #56 caps 08/20/23 capsule,delayed release mupirocin 2 % topical ointment 1 applic topical BID 5 days #22 08/20/23 grams sulfamethoxazole 800 1 tab PO BID 5 days #10 tabs 08/20/23 mg-tr
[2023-08-20 11:11] LABS: Microscopic, Urine URINE MICROSCOPIC (MICROSCOPIC)
[2023-08-20 11:15] LABS: Basophils # 0.1 K/mm3 (0-0.2); Basophils % 0.4 % (0.1-2.0); Eosinophils # 0.2 K/mm3 (0.0-0.4); Eosinophils % 1.2 % (0.1-12.0); Hematocrit 38.6 % (37.0-47.0); Hemoglobin 13.5 g/dL (12.2-16.2); Lymphocytes # 2.5 K/mm3 (0.7-4.5); Lymphocytes % 19.8 % (10-50); Mean Corpuscular Hemoglobin 30.8 pg (27.0-31.2); Mean Platelet Volume 7.7 fl (7.4-10.4); Monocytes # 0.6 K/mm3 (0.1-1.0); Monocytes % 4.8 % (1.7-9.3); Neutrophils # 9.4 K/mm3 (1.8-7.8); Neutrophils % 73.8 % (37.0-80.0); Platelet Count 398 K/mm3 (142-424); Red Blood Count 4.38 M/mm3 (4.20-5.40); White Blood Count 12.8 K/mm3 (4.8-10.8)
[2023-08-20 11:16] LABS: Appearance,Urine CLEAR (Clear); Bilirubin,Urine Negative (Negative); Blood, Urine Negative (Negative); Color,Urine YELLOW (Yellow); Glucose,Urine (UA) Negative (Negative); Ketones,Urine Negative (Negative); Leukocyte Esterase,Urine Negative (Negative); Nitrate,Urine Negative (Negative); PH,Urine 5.5 (5.0-8.5); Protein,Urine Negative (Negative); Specific Gravity, Urine 1.025 (1.005-1.030); Urobilinogen,Urine 0.2 EU/dl (0.2)
--- NOTE | 2023-08-20 11:22 | PC.NURSE ---
Rounded on pt. No needs voiced at this time. Call light placed within reach.
[2023-08-20 11:25] LABS: Alanine Aminotransferase 20 U/L (12-78); Albumin Level 4.3 g/dl (3.5-5.0); Albumin/Globulin Ratio 1.2 (1.1-1.8); Alkaline Phosphatase 90 U/L (38-126); Anion Gap 14.1 mEq/L (5-15); Aspartate Amino Transferase 24 U/L (14-36); Bilirubin,Total 0.4 mg/dl (0.2-1.3); Blood Urea Nitrogen 15 mg/dl (7-17); Calcium 9.1 mg/dl (8.4-10.2); Carbon Dioxide 21 mmol/L (22.0-30.0); Chloride 104 mmol/L (98-107); Creatinine Clearance Estimated 111 mL/min (50-200); Estimated Glomerular Filt Rate 78 ml/min (>60); GFR (African American) 94 ML/MIN (>60); Globulin 3.5 g/dL (1.3-3.2); Glucose 128 mg/dl (74-100); Lipase 174 U/L (23-300); Potassium 4.1 mmoL/L (3.5-5.1); Sodium 135 mmol/L (136-145); Total Protein,Serum 7.8 g/dl (6.3-8.2); Triglycerides 107 mg/dl (30-150)
[2023-08-20 11:31] VITALS: BP 127/52; PULSE 86; RESP 20; O2SAT 97
[2023-08-20 11:31] LABS: Bacteria,Urine Trace /lpf
[2023-08-20 12:00] VITALS: BP 123/89; PULSE 63; RESP 20; O2SAT 98
[2023-08-20 12:30] VITALS: BP 125/90; PULSE 68; O2SAT 98
[2023-08-20 13:06] LABS: Lactic Acid 1.4 mmol/L (0.7-2.1)
[2023-08-20 13:14] VITALS: BP 125/90; PULSE 68; RESP 18; TEMP 36.6; O2SAT 98
== END 2023-08-20 13:15 | disposition home or self-care (01) ==
PROVIDERS: Emergency Provider Emergency Medicine
DX: R10.10 Upper abdominal pain, unspecified (principal); K29.70 Gastritis, unspecified, without bleeding; L03.211 Cellulitis of face; F17.290 Nicotine dependence, other tobacco product, uncomplicated
CPT/HCPCS: 80053; 81001; 83605; 83690; 84478; 85025; 96361; 96374; 96375; 99284; J0131

== ENCOUNTER 2024-05-28 21:03 | Emergency (ER) | payer OTHER, SELFPAY ==
--- NOTE | 2024-05-28 22:12 | PC.NURSE ---
updated patient that we were still waiting on rooms to open up to bring back to er.
--- NOTE | 2024-05-28 22:32 | PC.NURSE ---
was advised patient lwbs.
[2024-05-28 22:39] VITALS: BP 0/0; PULSE 0; RESP 0; TEMP -17.7; TEMP 0; O2SAT 0
== END 2024-05-28 22:42 | disposition left against medical advice (07) ==
PROVIDERS: Emergency Provider Emergency Medicine
DX: Z53.21 Procedure and treatment not carried out due to patient leaving prior to being seen by health care provider (principal)
CPT/HCPCS: 99211